=== PATIENT | male | born 2000 ===

== ENCOUNTER 2021-12-04 10:56 | Emergency (ER) | payer SELFPAY ==
[2021-12-04 15:29] LABS: Basophils % (Auto) 0.4 % (0.0-1.8); Eosinophils # (Auto) 0.2 K/mm3 (0.0-0.4); Eosinophils % (Auto) 3.2 % (0.0-4.3); Hematocrit 49.7 % (35.5-45.6); Hemoglobin 17.1 gm/dl (11.8-15.2); Lymphocytes # (Auto) 2.2 K/mm3 (1.2-5.4); Lymphocytes % (Auto) 34.1 % (13.4-35.0); Mean Corpuscular HGB Conc 34 % (32-34); Mean Corpuscular Volume 92 fl (84-94); Monocytes # (Auto) 0.3 K/mm3 (0.0-0.8); Monocytes % (Auto) 5.2 % (0.0-7.3); Platelet Count 139 K/mm3 (140-440); Red Blood Count 5.39 M/mm3 (3.65-5.03); Red Cell Distribution Width 13.4 % (13.2-15.2)
[2021-12-04 15:53] LABS: Alanine Aminotransferase 12 units/L (7-56); Albumin 5.3 g/dL (3.9-5); BUN/Creatinine Ratio 9; Blood Urea Nitrogen 8 mg/dL (9-20); Calcium 10.2 mg/dL (8.4-10.2); Hemolysis Index 18
--- NOTE | 2021-12-04 19:00 | Emergency Department Report ---
ED Abdominal Pain HPI - General Chief Complaint: Abdominal Pain Stated Complaint: STOMACH SPASMS Time Seen by Provider: 12/04/21 18:15 Source: patient Mode of arrival: Ambulatory Limitations: No Limitations - History of Present Illness Initial Comments: Patient is a 20-year-old male who presents with spasm-like diffuse abdominal pain for approximately 1 week with increases and decreases in severity. Right now it is 4 out of 10 but it is 9 out of 10 at its worst. He states he has had some nausea and vomited twice at onset of the pain but no vomiting since and he is not currently nauseous. He states he has not had a bowel movement in 3 days. Denies fever diarrhea dysuria urgency frequency hematochezia melena or hematuria. No prior similar symptoms. Denies any health problems. No fevers or chills. Improves With: nothing Worsens With: nothing Associated Symptoms: nausea, vomiting, constipation. denies: diarrhea, fever, chills, dysuria, hematemesis, hematochezia, melena, hematuria, anorexia - Related Data Allergies Allergy/AdvReac Type Severity Reaction Status Date / Time No Known Allergies Allergy Unverified 12/04/21 11:45 ED Review of Systems ROS: Stated complaint: STOMACH SPASMS Other details as noted in HPI Comment: All other systems reviewed and negative Constitutional: denies: chills, fever Eyes: denies: eye pain, eye discharge, vision change ENT: denies: ear pain, throat pain Respiratory: denies: cough, shortness of breath, wheezing Cardiovascular: denies: chest pain, palpitations Endocrine: no symptoms reported Gastrointestinal: as per HPI Genitourinary: denies: urgency, dysuria Musculoskeletal: denies: back pain, joint swelling, arthralgia Skin: denies: rash, lesions Neurological: denies: headache, weakness, paresthesias Psychiatric: denies: anxiety, depression Hematological/Lymphatic: denies: easy bleeding, easy bruising ED Past Medical Hx - Past Medical History Previous Medical History?: Yes Hx Asthma: Yes - Surgical History Past Surgical History?: No ED Physical Exam - General Limitations: No Limitations General appearance: alert, in no apparent distress - Head Head exam: Present: atraumatic, normocephalic - Eye Eye exam: Present: normal appearance - ENT ENT exam: Present: mucous membranes moist - Neck Neck exam: Present: normal inspection - Respiratory Respiratory exam: Present: normal lung sounds bilaterally. Absent: respiratory distress - Cardiovascular Cardiovascular Exam: Present: regular rate, normal rhythm. Absent: systolic murmur, diastolic murmur, rubs, gallop - GI/Abdominal GI/Abdominal exam: Present: soft, tenderness (Diffuse), normal bowel sounds. Absent: distended, guarding, rebound, rigid, organomegaly, pulsatile mass - Rectal Rectal exam: Present: deferred - Extremities Exam Extremities exam: Present: normal inspection - Back Exam Back exam: Present: normal inspection - Neurological Exam Neurological exam: Present: alert, oriented X3 - Psychiatric Psychiatric exam: Present: normal affect, normal mood - Skin Skin exam: Present: warm, dry, intact, normal color. Absent: rash ED Course Vital Signs 12/04/21 12/04/21 11:43 20:40 Temperature 98.3 F Pulse Rate 52 L 53 L Respiratory 18 16 Rate Blood Pressure 109/78 116/88 [Left] O2 Sat by Pulse 99 100 Oximetry ED Medical Decision Making - Lab Data Result diagrams: 12/04/21 14:46 12/04/21 14:46 - Radiology Data Radiology results: image reviewed interpreted by me: [facility] [address] [place] [address] XRay Report Signed Patient: TITO PAZ MR#: [id number] : 2000 Acct:[id number] Age/Sex: 20 / M ADM Date: 12/04/21 Loc: ED Attending Dr: Ordering Physician: MARINE WILLIAMSON Date of Service: 12/04/21 Procedure(s): XR abd series w cxr 1V Accession Number(s): [id number] cc: MARINE WILLIAMSON Fluoro Time In Minutes: XR abd series w cxr 1V INDICATION / CLINICAL INFORMATION: abdominal pain - constipat. COMPARISON: None available. FINDINGS: SUPPORT DEVICES: None. HEART / MEDIASTINUM: No significant abnormality. LUNGS / PLEURA: Lungs are clear. Costophrenic sulci are sharp. No pneumothorax. ABDOMEN: Nonobstructive bowel gas pattern. No pneumoperitoneum. ADDITIONAL FINDINGS: No significant additional findings. IMPRESSION: 1. No acute findings. 2. Nonobstructive bowel gas pattern. Signer Name: Tyler Lovelace MD Signed: 12/04/2021 7:34 PM Workstation Name: [id number] Transcribed By: CS Dictated By: Tyler Lovelace MD Electronically Authenticated By: Tyler Lovelace MD Signed Date/Time: 12/04/211933 DD/ 33 TD/TT: Print [facility] [address] [place] [address] XRay Report Signed Patient: TITO PAZ MR#: [id number] : 2000 Acct:[id number] Age/Sex: 20 / M ADM Date: 12/04/21 Loc: ED Attending Dr: Ordering Physician: MARINE WILLIAMSON Date of Service: 12/04/21 Procedure(s): XR abd series w cxr 1V Accession Number(s): [id number] cc: MARINE WILLIAMSON Fluoro Time In Minutes: XR abd series w cxr 1V INDICATION / CLINICAL INFORMATION: abdominal pain - constipat. COMPARISON: None available. FINDINGS: SUPPORT DEVICES: None. HEART / MEDIASTINUM: No significant abnormality. LUNGS / PLEURA: Lungs are clear. Costophrenic sulci are sharp. No pneumothorax. ABDOMEN: Nonobstructive bowel gas pattern. No pneumoperitoneum. ADDITIONAL FINDINGS: No significant additional findings. IMPRESSION: 1. No acute findings. 2. Nonobstructive bowel gas pattern. Signer Name: Tyler Lovelace MD Signed: 12/04/2021 7:34 PM Workstation Name: [id number] Transcribed By: CS Dictated By: Tyler Lovelace MD Electronically Authenticated By: Tyler Lovelace MD Signed Date/Time: 12/04/211933 DD/ 33 TD/TT: Print - Medical Decision Making Constipation and abdominal pain for a week in a 20-year-old male. Serial abdomen exams benign and patient is walking around the emergency room and doodling on our whiteboard. Labs unremarkable x-ray reveals nonobstructive bowel gas pattern. We will send out on MiraLAX with follow-up with primary care. Critical care attestation.: If time is entered above; I have spent that time in minutes in the direct care of this critically ill patient, excluding procedure time. ED Disposition Clinical Impression: Constipation, Abdominal pain Disposition: HOME / SELF CARE / HOMELESS Is pt being admited?: No Condition: Stable Instructions: Constipation, Adult, Abdominal Pain, Adult, [id number] Additional Instructions: MiraLAX every 12 hours until good bowel movement and then every 24 hours until daily regular good bowel movements. Then just as needed. Increase fluids and fiber in your diet. Follow-up with your primary care doctor. Return if fever vomiting or worse pain. Referrals: BESSY LAZO MD [Primary Care Provider] - 3-5 Days Forms: Work/School Release Form(ED) Time of Disposition: 20:23
[2021-12-04 19:08] LABS: Color,Urine Straw (Yellow); RBC,Urine < 1.0 /HPF (0.0-6.0); Sperm,Urine FEW /HPF (NP)
--- NOTE | 2021-12-04 19:39 | XRay Report ---
XR abd series w cxr 1V INDICATION / CLINICAL INFORMATION: abdominal pain - constipat. COMPARISON: None available. FINDINGS: SUPPORT DEVICES: None. HEART / MEDIASTINUM: No significant abnormality. LUNGS / PLEURA: Lungs are clear. Costophrenic sulci are sharp. No pneumothorax. ABDOMEN: Nonobstructive bowel gas pattern. No pneumoperitoneum. ADDITIONAL FINDINGS: No significant additional findings. IMPRESSION: 1. No acute findings. 2. Nonobstructive bowel gas pattern. Signer Name: Tyler Lovelace MD Signed: 12/04/2021 7:34 PM Workstation Name: [id number]
[2021-12-04 21:03] VITALS: BP 116/88
== END 2021-12-04 20:40 | disposition home or self-care (01) ==
LOC: ED 10:56
DX: K59.00 Constipation, unspecified (principal); R10.9 Unspecified abdominal pain; J45.909 Unspecified asthma, uncomplicated
CPT/HCPCS: 36415; 74022; 80053; 81001; 85025; 86140; 99283